=== PATIENT | female | born 1990 | race Caucasian/White ===

== ENCOUNTER 2016-05-19 18:10 | Emergency (ER) | payer MEDICAID ==
[2014-03-25 18:27] VITALS: BMI 29.7
[~2016-05-19 18:10] MED LIST: HYDROCODON-ACE1 EAC7 PO; IBUPROFEN400 MG PO; PERCOCET 10/3251 TA1 PO
== END 2016-05-19 20:09 | disposition home or self-care (01) ==
LOC: D.ER 18:10
DX: J02.0 Streptococcal pharyngitis (principal)

== ENCOUNTER 2016-05-31 23:22 | Emergency (ER) | payer MEDICAID ==
[2014-03-25 18:27] VITALS: BMI 29.7
== END 2016-06-01 00:14 | disposition home or self-care (01) ==
LOC: D.ER 23:22
DX: K64.4 Residual hemorrhoidal skin tags (principal)

== ENCOUNTER 2016-06-22 12:00 | Emergency (ER) | payer MEDICAID ==
[2014-03-25 18:27] VITALS: BMI 29.7
== END 2016-06-22 14:54 | disposition home or self-care (01) ==
LOC: D.ER 12:00
DX: M54.5 Low back pain (principal)

== ENCOUNTER 2016-08-04 07:21 | Emergency (ER) | payer MEDICAID ==
[2014-03-25 18:27] VITALS: BMI 29.7
[2016-08-04 07:48] LABS: BASOPHILS 0.8 % (0.0-2.0); EOSINOPHILS 4.6 % (0-7); HEMOGLOBIN 12.2 g/dL (12-16); LYMPHOCYTES 25.3 % (15-50); MCH 27.2 pg (26.0-34.0); MCHC 32.1 g/dL (31.0-37.0); MCV 84.6 fL (80.0-100.0); MEAN PLATELET VOLUME 9.1 fL (7.4-10.4); MONOCYTES 7.3 % (2-11); PLATELET COUNT 338 10x3/uL (130-400); RBC 4.49 10x6/uL (4.00-5.40); RDW 14.6 % (11.5-14.5); WBC 4.8 10x3/uL (4.8-10.8)
[2016-08-04 07:58] LABS: HCG SERUM NEGATIVE (NEGATIVE)
[2016-08-04 08:03] LABS: ALBUMIN 3.6 g/dL (3.4-5.0); BILIRUBIN - TOTAL 0.49 mg/dL (0.2-1.3); CALCIUM 8.9 mg/dL (8.5-10.1); CARBON DIOXIDE 24.7 mmol/L (21.0-32.0); POTASSIUM - SERUM 3.7 mmol/L (3.5-5.1); PROTEIN - SERUM 7.4 g/dL (6.4-8.2)
[2016-08-04 08:27] LABS: APPEARANCE CLOUDY (CLEAR); BILIRUBIN NEGATIVE (NEGATIVE); COLOR YELLOW (YELLOW); GLUCOSE NEGATIVE (NEGATIVE); KETONE NEGATIVE (NEGATIVE); LEUKOCYTE ESTERASE NEGATIVE (NEGATIVE); NITRITE NEGATIVE (NEGATIVE); PROTEIN 1+ mg/dL (NEGATIVE); SPECIFIC GRAVITY 1.025 (1.005-1.020); UROBILINOGEN NORMAL (NORMAL)
[2016-08-04 08:30] LABS: AMORPHOUS SEDIMENT <1+ /lpf (NONE SEEN); BACTERIA FEW /hpf (NONE SEEN); MUCUS <1+ /lpf (NONE SEEN); RED CELLS - URINE OCC /hpf (0-5); WHITE CELLS - URINE 0-5 /hpf (0-5)
== END 2016-08-04 09:37 | disposition home or self-care (01) ==
LOC: D.ER 07:21
PROVIDERS: Emergency Medicine
DX: R11.10 Vomiting, unspecified (principal); R19.7 Diarrhea, unspecified; A08.4 Viral intestinal infection, unspecified

== ENCOUNTER 2016-08-27 20:00 | Emergency (ER) | payer MEDICAID ==
[2014-03-25 18:27] VITALS: BMI 29.7
[2016-08-27 20:57] LABS: BASOPHILS 0.6 % (0.0-2.0); EOSINOPHILS 3.6 % (0-7); HEMOGLOBIN 11.3 g/dL (12-16); IMMATURE GRANULOCYTES 0.2 % (0-5); LYMPHOCYTES 15.5 % (15-50); MCH 27.6 pg (26.0-34.0); MCHC 32.3 g/dL (31.0-37.0); MCV 85.6 fL (80.0-100.0); MEAN PLATELET VOLUME 9.1 fL (7.4-10.4); MONOCYTES 8.8 % (2-11); NEUTROPHILS 71.3 % (40-80); PLATELET COUNT 405 10x3/uL (130-400); RBC 4.09 10x6/uL (4.00-5.40); RDW 14.5 % (11.5-14.5); WBC 11.3 10x3/uL (4.8-10.8)
[2016-08-27 21:11] LABS: ALBUMIN 3.2 g/dL (3.4-5.0); ALKALINE PHOSPHATASE 64 U/L (46-116); ALT (SGPT) 14 U/L (10-68); BILIRUBIN - TOTAL 0.25 mg/dL (0.2-1.3); CALC OSMOLALITY 277 mosm/kg (275-300); CALCIUM 8.2 mg/dL (8.5-10.1); CARBON DIOXIDE 26.6 mmol/L (21.0-32.0); CHLORIDE - SERUM 106 mmol/L (98-107); CREATININE - SERUM 0.8 mg/dL (0.6-1.3); GLUCOSE 99 mg/dL (74-106); POTASSIUM - SERUM 3.5 mmol/L (3.5-5.1); SODIUM 140 mmol/L (136-145); UREA NITROGEN 10 mg/dL (7-18); eGFR NON AFRICAN AMERICAN > 90 mL/min (90-120)
[2016-08-27 22:55] LABS: HCG URINE NEGATIVE (NEGATIVE)
[2016-08-27 22:57] LABS: APPEARANCE CLEAR (CLEAR); BILIRUBIN NEGATIVE (NEGATIVE); COLOR YELLOW (YELLOW); GLUCOSE NEGATIVE (NEGATIVE); KETONE NEGATIVE (NEGATIVE); LEUKOCYTE ESTERASE 1+ (NEGATIVE); NITRITE NEGATIVE (NEGATIVE); PROTEIN NEGATIVE (NEGATIVE); SPECIFIC GRAVITY 1.015 (1.005-1.020); UROBILINOGEN NORMAL (NORMAL)
[2016-08-27 22:58] LABS: BACTERIA FEW /hpf (NONE SEEN); MUCUS <1+ /lpf (NONE SEEN); RED CELLS - URINE 0-5 /hpf (0-5)
== END 2016-08-27 23:45 | disposition home or self-care (01) ==
LOC: D.ER 20:00
PROVIDERS: Emergency Medicine
DX: R19.7 Diarrhea, unspecified (principal); K52.9 Noninfective gastroenteritis and colitis, unspecified

== ENCOUNTER 2016-10-03 00:54 | Emergency (ER) | payer MEDICAID ==
[2014-03-25 18:27] VITALS: BMI 29.7
[2016-10-03 01:20] LABS: HCG URINE NEGATIVE (NEGATIVE)
[2016-10-03 01:27] LABS: APPEARANCE CLEAR (CLEAR); BILIRUBIN NEGATIVE (NEGATIVE); COLOR YELLOW (YELLOW); GLUCOSE NEGATIVE (NEGATIVE); KETONE NEGATIVE (NEGATIVE); LEUKOCYTE ESTERASE NEGATIVE (NEGATIVE); NITRITE NEGATIVE (NEGATIVE); PROTEIN NEGATIVE (NEGATIVE); SPECIFIC GRAVITY 1.015 (1.005-1.020); UROBILINOGEN NORMAL (NORMAL)
[2016-10-03 01:29] LABS: HEMATOCRIT 31.5 % (36.0-48.0); HEMOGLOBIN 10.3 g/dL (12-16); LYMPHOCYTES 38.1 % (15-50); MCH 26.3 pg (26.0-34.0); MCHC 32.7 g/dL (31.0-37.0); MCV 80.6 fL (80.0-100.0); MEAN PLATELET VOLUME 8.2 fL (7.4-10.4); NEUTROPHILS 52.8 % (40-80); PLATELET COUNT 424 10x3/uL (130-400); RBC 3.91 10x6/uL (4.00-5.40); RDW 13.6 % (11.5-14.5); WBC 6.8 10x3/uL (4.8-10.8)
[2016-10-03 01:43] LABS: ALBUMIN 3.4 g/dL (3.4-5.0); ALKALINE PHOSPHATASE 59 U/L (46-116); ALT (SGPT) 16 U/L (10-68); BILIRUBIN - TOTAL 0.32 mg/dL (0.2-1.3); CALC OSMOLALITY 278 mosm/kg (275-300); CALCIUM 9.1 mg/dL (8.5-10.1); CARBON DIOXIDE 25.3 mmol/L (21.0-32.0); CHLORIDE - SERUM 106 mmol/L (98-107); CREATININE - SERUM 0.9 mg/dL (0.6-1.3); GLUCOSE 85 mg/dL (74-106); LIPASE 178 U/L (73-393); POTASSIUM - SERUM 3.2 mmol/L (3.5-5.1); PROTEIN - SERUM 7.2 g/dL (6.4-8.2); SODIUM 141 mmol/L (136-145); UREA NITROGEN 11 mg/dL (7-18); eGFR NON AFRICAN AMERICAN 81 mL/min (90-120)
== END 2016-10-03 02:11 | disposition home or self-care (01) ==
LOC: D.ER 00:54
PROVIDERS: Emergency Medicine
DX: K59.00 Constipation, unspecified (principal)

== ENCOUNTER 2016-11-30 12:41 | Emergency (ER) | payer MEDICAID ==
[2014-03-25 18:27] VITALS: BMI 29.7
[2016-11-30 13:58] LABS: HCG URINE NEGATIVE (NEGATIVE)
[2016-11-30 14:05] LABS: APPEARANCE SLT CLOUDY (CLEAR); BACTERIA MODERATE /hpf (NONE SEEN); BILIRUBIN NEGATIVE (NEGATIVE); COLOR STRAW (YELLOW); EPITHELIAL CELLS RARE /hpf (0-5); GLUCOSE NEGATIVE (NEGATIVE); KETONE NEGATIVE (NEGATIVE); LEUKOCYTE ESTERASE 2+ (NEGATIVE); MUCUS <1+ /lpf (NONE SEEN); NITRITE POSITIVE (NEGATIVE); PROTEIN NEGATIVE (NEGATIVE); UROBILINOGEN NORMAL (NORMAL); WHITE CELLS - URINE >50 /hpf (0-5)
[2016-11-30 14:18] LABS: BASOPHILS 0.4 % (0-2); EOSINOPHILS 2.9 % (0-7); HEMATOCRIT 35.4 % (36.0-48.0); HEMOGLOBIN 11.5 g/dL (12-16); IMMATURE GRANULOCYTES 0.1 % (0-5); LYMPHOCYTES 17.8 % (15-50); MCH 27.4 pg (26.0-34.0); MCHC 32.5 g/dL (31.0-37.0); MCV 84.5 fL (80.0-100.0); MEAN PLATELET VOLUME 9.1 fL (7.4-10.4); MONOCYTES 14.7 % (2-11); NEUTROPHILS 64.1 % (40-80); PLATELET COUNT 372 10x3/uL (130-400); RBC 4.19 10x6/uL (4.00-5.40); RDW 16.2 % (11.5-14.5)
[2016-11-30 15:09] LABS: ALBUMIN 3.2 g/dL (3.4-5.0); ALKALINE PHOSPHATASE 54 U/L (46-116); ALT (SGPT) 15 U/L (10-68); CALC OSMOLALITY 281 mosm/kg (275-300); CALCIUM 9.1 mg/dL (8.5-10.1); CHLORIDE - SERUM 106 mmol/L (98-107); CREATININE - SERUM 0.9 mg/dL (0.6-1.3); GLUCOSE 94 mg/dL (74-106); POTASSIUM - SERUM 4.1 mmol/L (3.5-5.1); PROTEIN - SERUM 6.8 g/dL (6.4-8.2); SODIUM 142 mmol/L (136-145); UREA NITROGEN 9 mg/dL (7-18); eGFR NON AFRICAN AMERICAN 81 mL/min (90-120)
== END 2016-11-30 15:00 | disposition home or self-care (01) ==
LOC: D.ER 12:41
PROVIDERS: Emergency Medicine
DX: N39.0 Urinary tract infection, site not specified (principal)

== ENCOUNTER 2017-11-04 17:35 | Emergency (ER) | payer MEDICAID ==
[~2017-11-04] VITALS: Ht 157.5 cm; Wt 75.0 kg
[2017-11-04 17:50] VITALS: BP 132/74; Ht 157.5 cm; Wt 75.0 kg
[2017-11-05] MEDS ORDERED: KEFLEX500 MG PO (01:58)
[2017-11-05] MEDS ORDERED: BACTRIM DS TABL1 TAB PO (01:58)
== END 2017-11-04 19:53 | disposition left against medical advice (07) ==
LOC: D.ER 17:35
DX: S30.860A Insect bite (nonvenomous) of lower back and pelvis, initial encounter (principal); W57.XXXA Bitten or stung by nonvenomous insect and other nonvenomous arthropods, initial encounter; Y93.89 Activity, other specified; Y92.89 Other specified places as the place of occurrence of the external cause; L29.9 Pruritus, unspecified

== ENCOUNTER 2017-11-05 01:40 | Emergency (ER) | payer MEDICAID ==
[~2017-11-05] VITALS: Ht 157.5 cm; Wt 75.0 kg
[2017-11-05 01:46] VITALS: BP 131/79; Ht 157.5 cm; Wt 75.0 kg
[2017-11-05] MEDS ORDERED: KEFLEX500 MG PO (01:58)
[2017-11-05] MEDS ORDERED: BACTRIM DS TABL1 TAB PO (01:58)
== END 2017-11-05 02:17 | disposition home or self-care (01) ==
LOC: D.ER 01:40
DX: S30.860A Insect bite (nonvenomous) of lower back and pelvis, initial encounter (principal); W57.XXXA Bitten or stung by nonvenomous insect and other nonvenomous arthropods, initial encounter; Y93.89 Activity, other specified; Y92.019 Unspecified place in single-family (private) house as the place of occurrence of the external cause; L29.9 Pruritus, unspecified

== ENCOUNTER 2018-02-11 15:45 | Emergency (ER) | payer MEDICAID ==
[~2018-02-11] VITALS: Ht 157.5 cm; Wt 75.5 kg
[~2018-02-11 15:45] MED LIST changes: +BACTRIM DS TABL1 TAB PO; +KEFLEX500 MG PO
[2018-02-11 15:47] VITALS: Ht 157.5 cm; Wt 75.5 kg
[2018-02-11 16:28] LABS: APPEARANCE CLEAR (CLEAR); COLOR STRAW (YELLOW); NITRITE POSITIVE (NEGATIVE); SPECIFIC GRAVITY 1.005 (1.005-1.020)
[2018-02-11 16:29] LABS: BILIRUBIN NEGATIVE (NEGATIVE); GLUCOSE NEGATIVE (NEGATIVE); KETONE NEGATIVE (NEGATIVE); PROTEIN NEGATIVE (NEGATIVE); UROBILINOGEN NORMAL (NORMAL)
[2018-02-11 16:30] LABS: BACTERIA FEW /hpf (NONE SEEN); EPITHELIAL CELLS 0-5 /hpf (0-5); WHITE CELLS - URINE 0-5 /hpf (0-5)
[2018-02-11] MEDS ORDERED: KEFLEX500 MG PO (17:14)
[2018-02-11] MEDS ORDERED: NORCO 7.5/325 T1 TA1 PO (17:14)
[2018-02-11 17:43] VITALS: BP 103/59
== END 2018-02-11 17:44 | disposition home or self-care (01) ==
LOC: D.ER 15:45
PROVIDERS: Emergency Medicine
DX: J02.0 Streptococcal pharyngitis (principal); H92.01 Otalgia, right ear; F17.200 Nicotine dependence, unspecified, uncomplicated

== ENCOUNTER 2018-03-04 16:18 | Emergency (ER) | payer MEDICAID ==
[~2018-03-04] VITALS: Ht 157.5 cm; Wt 77.8 kg
[~2018-03-04 16:18] MED LIST changes: +NORCO 7.5/325 T1 TA1 PO
[2018-03-04 16:25] VITALS: Ht 157.5 cm; Wt 77.8 kg
[2018-03-04] MEDS ORDERED: TIROSINT13 MCG (16:26)
[2018-03-04 16:55] LABS: APPEARANCE CLEAR (CLEAR); BILIRUBIN NEGATIVE (NEGATIVE); COLOR DK YELLOW (YELLOW); GLUCOSE NEGATIVE (NEGATIVE); KETONE NEGATIVE (NEGATIVE); NITRITE NEGATIVE (NEGATIVE); PROTEIN TRACE mg/dL (NEGATIVE); UROBILINOGEN NORMAL (NORMAL)
[2018-03-04 17:08] LABS: BASOPHILS 1.2 % (0-2); EOSINOPHILS 6.2 % (0-7); HEMATOCRIT 38.7 % (36.0-48.0); HEMOGLOBIN 12.7 g/dL (12-16); LYMPHOCYTES 41.1 % (15-50); MCH 27.7 pg (26.0-34.0); MCHC 32.8 g/dL (31.0-37.0); MCV 84.3 fL (80.0-100.0); MONOCYTES 8.5 % (2-11); PLATELET COUNT 436 10x3/uL (130-400); RBC 4.59 10x6/uL (4.00-5.40); RDW 15.2 % (11.5-14.5); WBC 5.8 10x3/uL (4.8-10.8)
[2018-03-04 17:34] LABS: HCG URINE NEGATIVE (NEGATIVE)
[2018-03-04 17:35] LABS: ALBUMIN 3.6 g/dL (3.4-5.0); ANION GAP 13.5 mmol/L (8-16); BILIRUBIN - TOTAL 0.41 mg/dL (0.2-1.3); CALCIUM 9.1 mg/dL (8.5-10.1); POTASSIUM - SERUM 3.5 mmol/L (3.5-5.1); PROTEIN - SERUM 7.7 g/dL (6.4-8.2)
[2018-03-04 18:44] VITALS: BP 110/077
== END 2018-03-04 18:45 | disposition home or self-care (01) ==
LOC: D.ER 16:18
PROVIDERS: Family Medicine
DX: R55 Syncope and collapse (principal); F17.200 Nicotine dependence, unspecified, uncomplicated

== ENCOUNTER 2018-04-20 06:58 | Emergency (ER) | payer MEDICAID ==
[~2018-04-20] VITALS: Ht 157.5 cm; Wt 80.0 kg
[~2018-04-20 06:58] MED LIST changes: +TIROSINT13 MCG
[2018-04-20 06:59] VITALS: Ht 157.5 cm; Wt 80.0 kg
[2018-04-20] MEDS ORDERED: SYNTHROID75 MCG PO (07:00)
[2018-04-20] MEDS ORDERED: LOMOTIL 2.5-0.1 EAC1 PO (07:25)
[2018-04-20] MEDS ORDERED: ZOFRAN ODT4 MG/UDTAB PO (07:25)
[2018-04-20 08:27] VITALS: BP 102/78
== END 2018-04-20 08:27 | disposition home or self-care (01) ==
LOC: D.ER 06:58
DX: R11.10 Vomiting, unspecified (principal); R19.7 Diarrhea, unspecified; E03.9 Hypothyroidism, unspecified

== ENCOUNTER 2019-01-21 18:19 | Emergency (ER) | payer SELFPAY ==
[~2019-01-21] VITALS: Ht 157.5 cm; Wt 65.9 kg
[~2019-01-21 18:19] MED LIST changes: +LOMOTIL 2.5-0.1 EAC1 PO; +SYNTHROID75 MCG PO; +ZOFRAN ODT4 MG/UDTAB PO
[2019-01-21 18:41] VITALS: BP 120/71; Ht 157.5 cm; Wt 65.9 kg
== END 2019-01-21 20:15 | disposition home or self-care (01) ==
LOC: D.ER 18:19
DX: L74.0 Miliaria rubra (principal); F17.210 Nicotine dependence, cigarettes, uncomplicated

== ENCOUNTER 2020-02-24 14:52 | Emergency (ER) | payer MEDICAID ==
[~2020-02-24] VITALS: Ht 157.5 cm; Wt 85.5 kg
[2020-02-24 15:10] VITALS: BP 129/92; Ht 157.5 cm; Wt 85.5 kg
[2020-02-24 16:28] LABS: BASOPHILS 1.1 % (0-2); EOSINOPHILS 5.4 % (0-7); HEMATOCRIT 39.1 % (36.0-48.0); HEMOGLOBIN 12.9 g/dL (12-16); IMMATURE GRANULOCYTES 0.3 % (0-5); LYMPHOCYTES 28.3 % (15-50); MCH 27.8 pg (26.0-34.0); MCV 84.3 fL (80.0-100.0); MEAN PLATELET VOLUME 8.6 fL (7.4-10.4); MONOCYTES 10.6 % (2-11); NEUTROPHILS 54.3 % (40-80); PLATELET COUNT 431 10x3/uL (130-400); RBC 4.64 10x6/uL (4.00-5.40); RDW 14.3 % (11.5-14.5); WBC 7.4 10x3/uL (4.8-10.8)
[2020-02-24 16:43] LABS: HCG URINE NEGATIVE (NEGATIVE)
[2020-02-24 16:58] LABS: CALC OSMOLALITY 275 mosm/kg (275-300); CALCIUM 9.1 mg/dL (8.5-10.1); CARBON DIOXIDE 25.7 mmol/L (21.0-32.0); CHLORIDE - SERUM 103 mmol/L (98-107); CREATININE - SERUM 0.8 mg/dL (0.6-1.3); GLUCOSE 76 mg/dL (74-106); POTASSIUM - SERUM 4.4 mmol/L (3.5-5.1); SODIUM 138 mmol/L (136-145); UREA NITROGEN 14 mg/dL (7-18); eGFR NON AFRICAN AMERICAN 90 mL/min (90-120)
[2020-02-24 17:02] LABS: ALBUMIN 3.2 g/dL (3.4-5.0); ALKALINE PHOSPHATASE 78 U/L (30-120); ALT (SGPT) 12 U/L (10-68); PROTEIN - SERUM 7.2 g/dL (6.4-8.2)
[2020-02-24 17:08] LABS: BILIRUBIN - TOTAL 0.09 mg/dL (0.2-1.3)
[2020-02-24 17:52] LABS: BILIRUBIN NEGATIVE (NEGATIVE); KETONE NEGATIVE (NEGATIVE); NITRITE NEGATIVE (NEGATIVE); UROBILINOGEN NORMAL mg/dL (< 2)
[2020-02-24] MEDS ORDERED: DICLOFENAC SODI50 MG PO (18:03)
[2020-02-24] MEDS ORDERED: BACLOFEN10 MG PO (18:03)
== END 2020-02-24 18:33 | disposition home or self-care (01) ==
LOC: D.ER 14:52
PROVIDERS: Family Medicine
DX: M54.16 Radiculopathy, lumbar region (principal); R10.9 Unspecified abdominal pain